=== PATIENT | female | born 1975 | race Caucasian/White ===

== ENCOUNTER 2017-02-27 10:10 | Inpatient (IN) ==
[2017-02-27] MEDS ORDERED: FAMOTIDINE PB 20 MG/50 ML BAG IV ONE (10:13)
[2017-02-27] MEDS ORDERED: CITRIC ACID/SODIUM CITRATE 30ml PO ONE (10:13)
[2017-02-27] MEDS ORDERED: CEFAZOLIN PREMIX (MC ONLY) 2 GM/50 ML BAG IV ONE (10:13)
--- NOTE | 2017-02-27 10:39 | Anesthesia Preoperative Report ---
Anesthesia Epidural/Spinal Rec - Date and Time Date: 02/27/17 Preoperative Diagnosis: previous Procedure: Plan: Spinal - Vital Signs /Para: P:4 - Medictaions & Allergies Inpatient Medications: Current Medications Cefazolin Sodium (Kefzol) 1 g IVP PREOP ONE Stop: 02/27/17 10:14 Citric Acid/Sodium Citrate (Oracit) 30 ml PO PREOP ONE Stop: 02/27/17 10:14 Famotidine/Sodium Chloride (Pepcid Premix) 20 mg in 50 mls @ 100 mls/hr IV PREOP ONE Stop: 02/27/17 10:42 Cefazolin Sodium/Dextrose (Kefzol Premix (Mc Only)) 2 gm in 50 mls @ 100 mls/ hr IV PREOP ONE Stop: 02/27/17 10:42 Lactated Ringer's (Lactated Ringers) 1,000 mls @ 1,000 mls/hr IV .Q1H TRENA Allergies/Adverse Reactions: Allergies Allergy/AdvReac Type Severity Reaction Status Date / Time No Known Drug Allergies Allergy Mild Verified 11/19/14 09:07 - Home Medications Home Medications: Home Medications Medication Instructions Recorded Confirmed Type Acetaminophen [Tylenol] 325 mg PRN 02/22/17 History - Medical History Respiratory: DENIES: Asthma, Bronchitis, Chronic Obstructive Pulmonary Disease (COPD), Dyspnea, Orthopnea, Pulmonary Embolism, Pneumonia, Upper Respiratory Infection, Pulmonary Edema, Sleep Apnea, Tuberculosis, Other Cardiovascular: DENIES: Abnormal EKG, Angina, Arrhythmia, Congestive Heart Failure, Coronary Artery Disease, Heart Murmur, Hypertension, Hypotension, High Cholesterol, Myocardial Infarction, Rheumatic Fever, Valvular Heart Disease, Other Gastrointestional: Reports: Gastroesophageal Reflux Disease (just with ) Neuro/Musculoskeletal: Denies: HX.MS.OSAR, Back Problems, Cerebrovascular Accident, Depression, Headaches, Loss of Consciousness, Muscle Weakness, Neuromuscular Disorder, Paralysis, Paresthesia, Syncope, Seizures, Other Renal/Endocrine: Reports: Diabetes Mellitus Type 1 (gestational with past pregnancies, no with current ) Other History: DENIES: Anesthesia Reactions, Now, Blood Transfusions, Chemotherapy , Cancer, Hemophilia, Malignant Hyperthermia, Sickle Cell Disease, Other - Surgical History Reproductive Surgery/Treatment: Reports: Section (x3) Anesthesia Reactions: None - Social History Smoking Status: Never smoker Substance Use Type: does not use - Pertinent Findings EKG Rhythm: Normal Sinus Rhythm - Physical Exam Respiratory Exam: lungs clear, bilateral breath sounds equal Cardiovascular Exam: regular rate and rhythm, no murmur - Airway Assessment Mallampati Score: II TMD: 3 Fingerbreadths Neck Extension: fair Overall Assessment: may be difficult intubation - ASA ASA Score: 2 - Discussion Discussion: Discussed risks/options/alternatives of anesthesia and questions answered. Patient consents. Nursing pain assessment noted. Anesthesia Discussion: spouse Attestation Statement: Prior to the delivery of any anesthetic medication, I examined the patient, developed the plan, obtained the patient's consent and discussed the risk and benefits of the procedure with the patient/guardian.
[2017-02-27] MEDS: LR 1,000 ML IV SCH ×6 (10:46→20:47)
[2017-02-27 10:57] VITALS: BMI 42.7
[2017-02-27] MEDS: CEFAZOLIN 1 G INJECTION IVP ONE ×2 (11:37→12:29)
[2017-02-27] MEDS ORDERED: OXYTOCIN DRIP 30 UNIT/500 ML ML IV SCH ×2 (11:45→14:15)
[2017-02-27] MEDS ORDERED: FentaNYL 100 MCG/2 ML INJECTION ONE (11:49)
[2017-02-27] MEDS ORDERED: MORPHINE SULFATE PF 5mg/10ml INJ (Duramorph) ONE (11:49)
[2017-02-27] MEDS: OXYTOCIN DRIP 30 UNIT/500 ML ML IV SCH ×2 (12:25→14:51)
[2017-02-27] MEDS ORDERED: ONDANSETRON 4 MG/2 ML INJECTION ONE (12:43)
[2017-02-27] MEDS ORDERED: ONDANSETRON 4 MG/2 ML INJECTION IVP PRN ×2 (13:54→13:59)
[2017-02-27] MEDS ORDERED: NALOXONE 2 MG/2 ML INJECTION PFS IVP PRN (13:54)
[2017-02-27] MEDS ORDERED: DiphenhydrAMINE 50 MG/ML INJECTION IVP PRN (13:54)
[2017-02-27] MEDS ORDERED: SALINE FLUSH 10ml SYRINGE IVF PRN (13:59)
[2017-02-27] MEDS ORDERED: SIMETHICONE 80 MG CHEWABLE TABLET PO PRN (13:59)
[2017-02-27] MEDS ORDERED: HYDROCORTISONE 2.5% CREAM 30gm RECTALLY PRN (13:59)
[2017-02-27] MEDS ORDERED: ACETAMINOPHEN 500 MG TABLET PO PRN (13:59)
[2017-02-27] MEDS ORDERED: DiphenhydrAMINE 25 MG CAPSULE PO PRN (13:59)
[2017-02-27] MEDS ORDERED: CALCIUM CARBONATE Chewable 500mg TABLET PO PRN (13:59)
[2017-02-27] MEDS: D5LR 1,000 ML IV SCH (14:01)
[2017-02-27] MEDS: IBUPROFEN 800 MG TABLET PO PRN (15:18)
--- NOTE | 2017-02-27 17:26 | Progress Note ---
OB PP Progress Note Free Text - Date Date: 02/27/17 - Progress Note Progress Note: Pt reports good pain control. No complaints. AVSS Abd-NT/ND, dressing intact and dry Stable Cont routine care.
[2017-02-27] MEDS: HYDROCODONE/APAP 5mg/325mg TABLET PO PRN (19:00)
--- NOTE | 2017-02-27 19:06 | Anesthesia Postoperative Note ---
- Date and Time Date: 02/27/17 Time: 19:06 - Status Patient Participated in Evaluation: Patient Participated in Person Vital Signs: Temperature 97.8 F 02/27/17 10:47 Pulse Rate 78 02/27/17 10:47 Respiratory Rate 16 02/27/17 10:47 Blood Pressure 117/74 02/27/17 10:47 Pulse Oximetry 96 02/27/17 10:47 Oxygen Delivery Method Room Air Respiratory Function: Airway Patent Cardiovascular Function: Regular Pulse EKG Rhythm: Normal Sinus Rhythm Mental Status: Alert and Oriented Pain Intensity: 5 Hydration: Taking PO Fluids Complications During Recover: None Apparent - Follow-Up Instructions Instructions: Per Surgeon
[2017-02-27] MEDS: SIMETHICONE 80 MG CHEWABLE TABLET PO SCH (20:30)
[2017-02-28] MEDS: SIMETHICONE 80 MG CHEWABLE TABLET PO SCH ×5 (00:12→23:24)
[2017-02-28] MEDS: D5LR 1,000 ML IV SCH (02:11)
[2017-02-28] MEDS: IBUPROFEN 800 MG TABLET PO PRN ×3 (03:44→23:22)
[2017-02-28] MEDS: HYDROCODONE/APAP 5mg/325mg TABLET PO PRN ×6 (03:46→23:22)
[2017-02-28] MEDS: DOCUSATE CALCIUM 240 MG CAPSULE PO SCH (08:59)
--- NOTE | 2017-02-28 09:56 | OB/GYN Progress Note ---
OB-Progress Note Free Text - Date Date: 02/28/17 - Progress Note Progress Note: vss af hgb stable doing well hall out q&a cont routine care path
[2017-03-01 03:39] VITALS: RESP 16
[2017-03-01] MEDS: HYDROCODONE/APAP 5mg/325mg TABLET PO PRN (07:41)
[2017-03-01] MEDS: IBUPROFEN 800 MG TABLET PO PRN (07:42)
[2017-03-01] MEDS: DOCUSATE CALCIUM 240 MG CAPSULE PO SCH ×2 (07:42→09:23)
--- NOTE | 2017-03-01 08:21 | OB/GYN Progress Note ---
OB-PP Progress Note - General PPD2 Weeks: 39 Maternal Group B Strep: Negative Maternal blood type: A+ Maternal Rubella Status: Immune - Subjective Date: 03/01/17 Lochia: Minimal Pain: contolled Voiding: voiding Nausea or Vomiting Present: No - Objective Vital Signs: Last Vital Signs Temp 98.3 F 03/01/17 07:45 Pulse 80 03/01/17 07:45 Resp 16 03/01/17 07:45 BP 124/69 03/01/17 07:45 Pulse Ox 95 03/01/17 07:45 General: alert and oriented Respiratory: non-labored Abdomen: fundus firm Incision: normal Extremities: non-tender Side: bilateral Edema Degree: 1+ - Assessment Assessment: SP, Repeat C/S, Tubal Ligation - Plan Plan: routine care Expected date of discharge: 03/01/[address] Lenz discharge later this morning.
[2017-03-01] MEDS: SIMETHICONE 80 MG CHEWABLE TABLET PO SCH (09:30)
--- NOTE | 2017-03-01 09:41 | Operative Note ---
DATE OF PROCEDURE: 02/27/2017 PREOPERATIVE DIAGNOSIS 1. 42-year-old female, G6, P4, at 39.0 weeks gestational age. 2. Advanced maternal age. 3. Previous x 3. 4. Gestational diabetes - diet controlled. 5. Desires permanent sterilization. POSTOPERATIVE DIAGNOSIS 1. Male , [birth year] Apgars, 41 64 g (9 pounds, 3 ounces) (Duane Curtis) PROCEDURE: Repeat low transverse section and modified [place] tubal ligation. EBL: 800 ml. ANESTHESIA: Spinal by Bong Aguila CRNA SURGEON: Mayank Lenz MD [employer] OPERATOR: Emmett Brandt - bi technical lead COMPLICATIONS: None. DESCRIPTION OF PROCEDURE After adequate spinal anesthesia, the patient was prepped and draped in the left lateral decubitus position. A Pfannenstiel skin incision was made in an ellipsoid fashion excising the old scar. This was carried down to the fascia and the fascia was incised transversely with Black scissors. Rectus fascia was bluntly and sharply dissected off the rectus muscles. Rectus muscles were divided, entered and extended cephalad and caudad. A bladder blade was inserted and the bladder was dissected off the lower uterine segment. Then a transverse incision was made in the lower uterine segment and clear fluid was noted. Infant was delivered from the vertex position without difficulty. Infant was bulb suctioned after delivery of head and then again after delivery of the body. Cord was doubly clamped and cut and the infant was received in the isolette by Maci Salas RN. Placenta was manually removed. The uterus was externalized and cleansed with moist lap sponges and then closure was begun. Uterus was closed using 0 Monocryl in a running nonlocking fashion. Bleeding was controlled on the bladder. Hemostasis was confirmed. Then the tubal ligation was performed. A mid-isthmic portion of the tube was elevated with a [place] clamp on the right side and then the knuckle of the tube was ligated with 2-0 chromic. Then a Meghan clamp was passed through the meso of the tube and the proximal and distal aspects of the knuckle of the tube were ligated with silk suture and then the knuckle of the tube was excised and sent to surgical pathology. This was repeated on the left side. Hemostasis was confirmed and then the uterine incision was reexamined. Posterior cul-de-sac was cleansed and then the uterus was replaced inside the abdominal cavity. Closure was then began of the abdomen. Peritoneum was closed using 2-0 Vicryl in a running nonlocking fashion. Fascia was closed using 0 Vicryl in a running nonlocking fashion bilaterally from the lateral aspects medially. Subcutaneous tissue space was closed with 3-0 Vicryl in a running nonlocking fashion. 4 -0 Monocryl was used in a subcuticular manner to close the skin. The patient went to recovery room in stable condition. [facility]
--- NOTE | 2017-03-01 10:10 | Discharge Instructions ---
Discharge Plan - Med Rec/Dispo Referrals/Follow Up: Mayank Lenz MD [Physician] - 1 Week Prescriptions: New Hydrocodone/APAP 5/325 [[place] 5/325] 1 - 2 tab PO Q4H PRN #20 tablet PRN Reason: Pain Ibuprofen [Motrin] 800 mg PO Q8H PRN #30 tablet PRN Reason: Pain Continue Acetaminophen [Tylenol] 325 mg PO PRN PRN PRN Reason: Pain - Disposition 01 Discharged Home, Self-Care
--- NOTE | 2017-03-01 10:13 | Discharge Instructions ---
Discharge Plan - Med Rec/Dispo Referrals/Follow Up: Mayank Lenz MD [Physician] - 1 Week Prescriptions: New Hydrocodone/APAP 5/325 [[place] 5/325] 1 - 2 tab PO Q4H PRN #20 tablet PRN Reason: Pain Ibuprofen [Motrin] 800 mg PO Q8H PRN #30 tablet PRN Reason: Pain Continue Acetaminophen [Tylenol] 325 mg PO PRN PRN PRN Reason: Pain Discharge Instructions/Outpatient Orders: Consulting Provider Discharge Instructions Time Frame: 03/01/17, Location: Determined By Patient Final Provider Discharge Instructions Time Frame: 03/01/17, Location: Determined By Patient - Disposition 01 Discharged Home, Self-Care
[2017-03-01 11:06] VITALS: BP 136/74; PULSE 92; TEMP 98.1; O2SAT 97
== END 2017-03-01 11:11 | disposition home or self-care (01) | DRG 766 ==
LOC: MC 10:10
PROVIDERS: ADMIT Obstetrics & Gynecology; ATTEND Obstetrics & Gynecology